=== PATIENT | male | born 1975 | race Caucasian/White ===

== ENCOUNTER 2018-08-21 11:09 | Inpatient (IN) | payer OTHER ==
[2018-08-21 11:21] VITALS: BMI 26.8
--- NOTE | 2018-08-21 16:45 | HP ---
COWS - Scale Resting Pulse: 1= [place] 81-100 Sweatin=Flushed/Facial Moisture Restless Observation: 1= Difficult to Sit Still Pupil Size: 0= Normal to Room Light Bone or Joint Aches: 1= Mild Discomfort Runny Nose/ Eye Tearin= Runny Nose/Eyes GI Upset > 30mins: 1= Stomach Cramp Tremor Observation: 1= Tremor [place], Not Seen Yawning Observation: 1= 1-2x During Session Anxiety or Irritability: 2=Irritable/Anxious Goose Flesh Skin: 0=Smooth Skin COWS Score: 12 CIWA Score Nausea/Vomitin-Mild Nausea/No Vomiting Muscle Tremors: 2 Anxiety: 2 Agitation: 4-Moderately Restless Paroxysmal Sweats: 2 Orientation: 1-Uncertain about Date (no distress) Tacttile Disturbances: 1-Very Mild Itch/Numbness Auditory Disturbances: 0-None Visual Disturbances: 0-None Headache: 0-None Present CIWA-Ar Total Score: 13 - Ad[place] Criteria [facility] [place] Admission for Medically Managed Detox: Requires at least one of the followin. CIWA greater than 12 2. Seizures within the past 24 hours 3. Delirium tremens within the past 24 hours 4. Hallucinations within the past 24 hours 5. Acute intervention needed for co occurring medical disorder 6. Acute intervention needed for co occurring psychiatric disorder 7. Severe withdrawal that cannot be handled at a lower level of care (continued vomiting, continued diarrhea, abnormal vital signs) requiring intravenous medication and/or fluids 8. Patient presents the following: CIWA greater than 12 Admission Criteria Met: Admission criteria met Admission ROS [facility] Chief Complaint: " I am tire, I need detox and rehab" Allergies/Adverse Reactions: Allergies Allergy/AdvReac Type Severity Reaction Status Date / Time No Known Allergies Allergy Verified 08/21/18 16:48 History of Present Illness: 42 yo male with hx of heroin (IV), alcohol and nicotine dependence is here seeking detox d/t withdrawal sx, self referred. PARTH = 0.086, utox positive for BNZO, BUP, FENT, Opi, patient denies recreational benzo, reports use of street BUP. Reports recent relapse two months ago. Reports hx of overdose in 2001. PMHX: OA, chronic back pain, Hep C., anxiety, bipolar and schizophrenia. Denies suicidal / homicidal ideation or hx of suicide attempt. Denies hx of seizures or blackouts. Longest period of sobriety three years 2012 - 2015. Exam Limitations: No Limitations - Ebola screening Have you traveled outside of the country in the last 21 days: No Have you had contact with anyone from an Ebola affected area: No Have you been sick,other than usual withdrawal symptoms: No Do you have a fever: No - Review of Systems Constitutional: Chills, Loss of Appetite, Changes in sleep, Unintentional Wgt. Loss (10 lbs in the pastr two months) EENT: reports: Nose Congestion Respiratory: reports: No Symptoms reported Cardiac: reports: No Symptoms Reported GI: reports: Nausea, Poor Appetite, Poor Fluid Intake, Abdominal cramping : reports: No Symptoms Reported Musculoskeletal: reports: Back Pain, Joint Pain (right knee r/t OA) Integumentary: reports: Dryness, Sweating Neuro: reports: Headache Endocrine: reports: See HPI, Excessive Sweating, Increased Thirst Hematology: reports: No Symptoms Reported Psychiatric: reports: Orientated x3, Anxious, Depressed Other Systems: Reviewed and Negative Patient History - Patient Medical History Hx Anemia: No Hx Asthma: No Hx Chronic Obstructive Pulmonary Disease (COPD): No Hx Cancer: No Hx Cardiac Disorders: No Hx Congestive Heart Failure: No Hx Hypertension: No Hx Hypercholesterolemia: No Hx Pacemaker: No HX Cerebrovascular Accident: No Hx Seizures: No Hx Dementia: No Hx Diabetes: No Hx Gastrointestinal Disorders: No Hx Liver Disease: Yes (Hep C ) Hx Genitourinary Disorders: No Hx Sexually Transmitted Disorders: No Hx Renal Disease (ESRD): No Hx Thyroid Disease: No Hx Human Immunodeficiency Virus (HIV): No Hx Hepatitis C: Yes (no treatment ) Hx Depression: Yes Hx Suicide Attempt: No Hx Bipolar Disorder: Yes Hx Schizophrenia: Yes - Patient Surgical History Past Surgical History: No - PPD History Previous Implant?: No Documented Results: Negative w/o proof PPD to be Administered?: Yes - Smoking Cessation Smoking history: Current every day smoker Have you smoked in the past 12 months: Yes Aproximately how many cigarettes per day: 20 Hx Chewing Tobacco Use: No Initiated information on smoking cessation: Yes 'Breaking Loose' booklet given: 08/21/18 - Substance & Tx. History Hx Alcohol Use: Yes Hx Substance Use: Yes Substance Use Type: Alcohol, Heroin Hx Substance Use Treatment: Yes (Last detox [facility] approx three weeks ago ) - Substances Abused Alcohol Route: Oral Frequency: 3-6 times per week Amount used: 6 x 24 oz beer Age of first use: 18 Date of Last Use: 08/21/18 Heroin Route: Injection Frequency: Daily Amount used: 3 bags Age of first use: 18 Date of Last Use: 08/21/18 Family Disease History - Family Disease History Family History: Denies Admission Physical Exam S - Vital Signs Vital Signs: Vital Signs - 24 hr 08/21/18 11:19 Temperature 98.6 F Pulse Rate 85 Respiratory 18 Rate Blood Pressure 117/66 - Physical General Appearance: Yes: Disheveled, Mild Distress, Alcohol on Breath, Sweating , Anxious HEENTM: Yes: EOMI, Hearing grossly Normal, Normal ENT Inspection, Normocephalic , Normal Voice, AJITH, Pharynx Normal, Tm's normal, Rhinorrhea, Other (dry mucous membranes) Respiratory: Yes: Chest Non-Tender, Lungs Clear, Normal Breath Sounds, No Respiratory Distress, No Accessory Muscle Use Neck: Yes: Within Normal Limits Breast: Yes: Breast Exam Deferred Cardiology: Yes: Regular Rhythm, Regular Rate Abdominal: Yes: Normal Bowel Sounds, Non Tender, Flat, Soft Genitourinary: Yes: Within Normal Limits Back: Yes: Normal Inspection Musculoskeletal: Yes: full range of Motion, Gait Steady, Pelvis Stable, Back pain, Other (+ right knee pain, no effusion present, full ROM) Extremities: Yes: Normal Capillary Refill, Normal Inspection, Normal Range of Motion, Non-Tender Neurological: Yes: diagnostic medical sonographer II-XII NML intact, Motor Strength 5/5, Depressed Affect Integumentary: Yes: Normal Color, Warm, Diaphoresis, Track Maloney (left forearm) Lymphatic: Yes: Within Normal Limits - Addiitonal Findings: Others' Prescriptions Patient Name: Néstor Hernandez Date: 1975 Address: [address] [place] [address] Sex: Male Rx Written Rx Dispensed Drug Quantity Days Supply Prescriber Name 07/03/2018 07/03/2018 zubsolv 5.7-1.4 mg tablet sl 15 15 Clark Moreno MD Patient Name: Néstor Del Cid Date: 1975 Address: [address] [place] [id number] Sex: Male Rx Written Rx Dispensed Drug Quantity Days Supply Prescriber Name 02/02/2018 02/02/2018 chlordiazepoxide 25 mg capsule 8 2 Peter Thacker 01/09/2018 01/10/2018 chlordiazepoxide 25 mg capsule 8 2 Gal [place] ( JONA) Patient Name: Néstor Hernandez Date: 1975 Address: [address] [place] [address] Sex: Male Rx Written Rx Dispensed Drug Quantity Days Supply Prescriber Name 10/14/2017 10/14/2017 chlordiazepoxide 25 mg capsule 10 3 Joann Bates MD - Diagnostic (1) Alcohol dependence with withdrawal Current Visit: Yes Status: Acute Qualifiers: Complication of substance-induced condition: uncomplicated Qualified Code(s ): F10.230 - Alcohol dependence with withdrawal, uncomplicated (2) Opioid dependence with withdrawal Current Visit: Yes Status: Acute (3) IVDU (intravenous drug user) Current Visit: Yes Status: Acute (4) Hep C w/o coma, chronic Current Visit: Yes Status: Chronic Comment: no tx [facility] Breath Alcohol Content Breath Alcohol Content: 0.086 Urine Drug Screen - Results Drug Screen Negative: No Urine Drug Screen Results: OPI-Opiates, BZO-Benzodiazepines, FEN-Fentanyl, BUP- Suboxone Inpatient Rehab Admission - Rehab Decision to Admit Inpatient rehab admission?: No
[2018-08-21] MEDS ORDERED: P-EPHED 60MG/TRIPROLIDI 2.5MG TABLET PO PRN (16:54)
[2018-08-21] MEDS ORDERED: IBUPROFEN 400 MG TABLET (FP) PO PRN (16:54)
[2018-08-21] MEDS ORDERED: guaiFENesin/D-METHORPHAN HB 10 ML UNIT-DOSE CUPS PO PRN (16:54)
[2018-08-21] MEDS ORDERED: MENTHOL/PHENOL 1 EACH UD MM PRN (16:54)
[2018-08-21] MEDS ORDERED: MAGNESIUM CITRATE 300 ML BOTTLE PO PRN (16:54)
[2018-08-21] MEDS ORDERED: MAGNESIUM HYDROX 2400MG/30ML ORAL SUSPENSION 30 ML CUP PO PRN (16:54)
[2018-08-21] MEDS ORDERED: ACETAMINOPHEN 325 MG TABLET (FP) PO PRN (16:54)
[2018-08-21] MEDS ORDERED: LOPERAMIDE HCL 2 MG CAPSULE PO PRN (16:54)
[2018-08-21] MEDS ORDERED: METHADONE HCL 10 MG TABLET (FOR DETOX USE ONLY) PO ONE ×2 (18:00→23:00)
[2018-08-21] MEDS ORDERED: diazePAM 5 MG TABLET PO ONE (18:00)
[2018-08-21] MEDS ORDERED: MELATONIN 5 MG TABLETS PO PRN (22:00)
[2018-08-21] MEDS: diazePAM 5 MG TABLET PO SCH (22:41)
[2018-08-21] MEDS: THIAMINE HCL 100 MG TABLET (FP) PO SCH (22:41)
[2018-08-22] MEDS: diazePAM 5 MG TABLET PO SCH ×3 (05:31→22:23)
[2018-08-22] MEDS ORDERED: METHADONE HCL 10 MG TABLET (FOR DETOX USE ONLY) PO SCH (10:00)
[2018-08-22] MEDS: diazePAM 5 MG TABLET PO PRN (10:47)
[2018-08-22] MEDS: PRENATAL VITAMINS W/ FOLIC ACID TABLET (FP) PO SCH (10:48)
[2018-08-22 10:53] LABS: HEMATOCRIT 44.2 % (35.4-49); HEMOGLOBIN 15.2 GM/dL (11.7-16.9); MCH 30.7 pg (25.7-33.7); MCHC 34.4 g/dl (32.0-35.9); MEAN CELL VOLUME 89.2 fl (80-96); MEAN PLT VOLUME 8.5 fl (7.5-11.1); PLATELET COUNT 278 K/MM3 (134-434); RBC 4.95 M/mm3 (4.00-5.60); RDW 13.2 % (11.9-15.9); WHITE BLOOD COUNT 6.1 K/mm3 (4.0-10.0)
--- NOTE | 2018-08-22 10:53 | PN ---
[facility] CIWA - CIWA Score Nausea/Vomitin-Mild Nausea/No Vomiting Muscle Tremors: 3 Anxiety: 2 Agitation: 3 Paroxysmal Sweats: 1-Minimal Palms Moist Orientation: 1-Uncertain about Date Tacttile Disturbances: 0-None Auditory Disturbances: 0-None Visual Disturbances: 0-None Headache: 1-Very Mild CIWA-Ar Total Score: 12 [facility] COWS - Scale Resting Pulse: 1= [place] 81-100 Sweatin= Chills/Flushing Restless Observation: 0= Sits Still Pupil Size: 0= Normal to Room Light Bone or Joint Aches: 1= Mild Discomfort Runny Nose/ Eye Tearin= Nasal Congestion GI Upset > 30mins: 2= Nausea/Diarrhea Tremor Observation of Outstretched Hands: 2= Slight Tremor Visible Yawning Observation: 1= 1-2x During Session Anxiety or Irritability: 1=Feels Anxious/Irritable Goose Flesh Skin: 0=Smooth Skin COWS Score: 10 [facility] Progress Note (SOAP) Subjective: joints pain body aches tremor sweating Objective: 08/22/18 10:55 Vital Signs Temperature 97.7 F 08/22/18 09:24 Pulse Rate 90 08/22/18 09:24 Respiratory Rate 18 08/22/18 09:24 Blood Pressure 139/62 08/22/18 09:24 O2 Sat by Pulse Oximetry (%) 08/22/18 10:55 lab pending Assessment: 08/22/18 10:56 withdrawal sx Plan: continue detox
[2018-08-22 11:04] LABS: ALK PHOS 74 U/L (45-117); ANION GAP 4 MMOL/L (8-16); BILIRUBIN,TOTAL 0.3 mg/dL (0.2-1); BLOOD UREA NITROGEN 14 mg/dL (7-18); CALCIUM 8.5 mg/dL (8.5-10.1); CHLORIDE 104 mmol/L (98-107); CO2 30 mmol/L (21-32); CREATININE 0.7 mg/dL (0.55-1.3); GLUCOSE,RANDOM 79 mg/dL (74-106); POTASSIUM 4.5 mmol/L (3.5-5.1); SGOT/AST 50 U/L (15-37); SGPT/ALT 70 U/L (13-61); SODIUM 138 mmol/L (136-145); TOT PROT 6.6 g/dl (6.4-8.2)
--- NOTE | 2018-08-22 11:13 | CONSULT ---
[facility] Psychiatric Consult - Data Date of interview: 08/22/18 Admission source: [facility] Identifying data: First admission to [facility] for this 42 y/o [place] male self-referred for detoxification (heroin + alcohol). Patient is single, a father of three, domiciled, unemployed and supported on odd jobs. Substance Abuse History: Confirmed by the patient in this interview. Details in current [facility] report as follows : Smoking history: Current every day smoker. Have you smoked in the past 12 months: Yes. Aproximately how many cigarettes per day: 20. Hx Chewing Tobacco Use: No. Initiated information on smoking cessation: Yes. 'Breaking Loose' booklet given: 08/21/18. - Substance & Tx. History. Hx Alcohol Use: Yes. Hx Substance Use: Yes. Substance Use Type: Alcohol, Heroin. Hx Substance Use Treatment: Yes (Last detox [facility] approx three weeks ago ). - Substances Abused. Alcohol. Route: Oral. Frequency: 3-6 times per week. Amount used: 6 x 24 oz beer. Age of first use: 18. Date of Last Use: 08/21/18. Heroin. Route: Injection. Frequency: Daily. Amount used: 3 bags. Age of first use: 18. Date of Last Use: 08/21/18 Medical History: Significant for hepatitis C, arthritis and self-reported allergic reaction to chlordiazepoxide (perioral rash). Psychiatric History: Patient endorses a history of [facility] Reportedly diagnosed with Schizophrenia. Mr Madison states that he is prescribed a monthly injection of aripriprazole (400 mg IM). Last received on 08/12/18 (confirmed by pharmacy claims of 08/12/18 at [facility]). Patient is followed by Dr Clark Moreno, psychiatrist at the [facility]. Noted script for suboxone (08/29) but the patient indicates that he has stopped taking that medication for past two weeks. Denies history of suicide attempts. Physical/Sexual Abuse/Trauma History: No reported history of abuse. Current stressors : unemployment, financial constraints, dispute with the mother of his children over child support and legal issues (arrests, court summons). Additional Comment: Urine Drug Screen Results: OPI-Opiates, BZO-Benzodiazepines , FEN-Fentanyl, BUP-Suboxone. Noted. Mental Status Exam - Mental Status Exam Alert and Oriented to: Time, Place, Person Cognitive Function: Good Patient Appearance: Unkempt (earrings in both ears), Disheveled Mood: Nervous, Withdrawn, Apprehensive Affect: Mood Congruent, Constricted Patient Behavior: Fatigued, Appropriate, Cooperative Speech Pattern: Clear (more comfortable in maori ; able to provide history in limited armenian), Appropriate Voice Loudness: Normal Thought Process: Goal Oriented Thought Disorder: Not Present Hallucinations: Denies Suicidal Ideation: Denies Homicidal Ideation: Denies Insight/Judgement: Poor Sleep: Well Appetite: Good Muscle strength/Tone: Normal Gait/Station: Normal Psychiatric Findings - Problem List ([place] 1, 2,3) (1) Alcohol dependence with withdrawal Current Visit: Yes Status: Acute Qualifiers: Complication of substance-induced condition: uncomplicated Qualified Code(s ): F10.230 - Alcohol dependence with withdrawal, uncomplicated (2) Opioid dependence with withdrawal Current Visit: Yes Status: Acute (3) Nicotine dependence Current Visit: Yes Status: Chronic (4) Substance induced mood disorder Current Visit: Yes Status: Chronic (5) Schizophrenia Current Visit: Yes Status: Chronic - Initial Treatment Plan Initial Treatment Plan: Psychoeducation. Sleep hygiene. Detoxification in progress. Support. AA/NA meetings. Patient has expressed the wish to enlist in rehabilitation after completion of his detoxification protocol. Social work team will facilitate this plan. Motivational encouragement for sobriety. Abilify 400 mg IM every month (already dispensed at [facility] on 08/12/18). Patient denies experiencing side effects. Observation.
[2018-08-22] MEDS ORDERED: FLU VACCINE QUAD 60 MCG/0.5 ML (MDV 18-19) IM ONE (12:00)
--- NOTE | 2018-08-22 16:33 | EKG ---
Test Reason : Blood Pressure : / mmHG Vent. Rate : 058 BPM Atrial Rate : 058 BPM P-R Int : 190 ms QRS Dur : 088 ms QT Int : 424 ms P-R-T Axes : 057 070 059 degrees QTc Int : 416 ms SINUS BRADYCARDIA OTHERWISE NORMAL ECG NO PREVIOUS ECGS AVAILABLE Confirmed by Madhav Becker ([id number]) on 08/22/2018 4:32:52 PM Referred By: Confirmed By:Madhav Becker
[2018-08-22] MEDS: THIAMINE HCL 100 MG TABLET (FP) PO SCH (22:23)
[2018-08-23] MEDS: diazePAM 5 MG TABLET PO PRN ×2 (07:28→13:27)
[2018-08-23] MEDS ORDERED: METHADONE HCL 5 MG TABLET (FOR DETOX USE ONLY) PO SCH (10:00)
[2018-08-23] MEDS: PRENATAL VITAMINS W/ FOLIC ACID TABLET (FP) PO SCH (10:02)
[2018-08-23] MEDS: diazePAM 5 MG TABLET PO SCH ×2 (10:02→22:25)
--- NOTE | 2018-08-23 10:14 | PN ---
S CIWA - CIWA Score Nausea/Vomitin-No Nausea/No Vomiting Muscle Tremors: 3 Anxiety: 1-Mildly Anxious Agitation: 2 Paroxysmal Sweats: 1-Minimal Palms Moist Orientation: 1-Uncertain about Date Tacttile Disturbances: 0-None Auditory Disturbances: 0-None Visual Disturbances: 0-None Headache: 2-Mild CIWA-Ar Total Score: 10 [facility] COWS - Scale Resting Pulse: 0= [place] 80 or Below Sweatin= Chills/Flushing Restless Observation: 0= Sits Still Pupil Size: 0= Normal to Room Light Bone or Joint Aches: 1= Mild Discomfort Runny Nose/ Eye Tearin= Nasal Congestion GI Upset > 30mins: 1= Stomach Cramp Tremor Observation of Outstretched Hands: 1= Tremor [place], Not Seen Yawning Observation: 0= None Anxiety or Irritability: 1=Feels Anxious/Irritable Goose Flesh Skin: 0=Smooth Skin COWS Score: 6 S Progress Note (SOAP) Subjective: body aches tremor sweating trouble sleep at night smoke a pack of cigarette daily nicotine patch and gum ordered Objective: 08/23/18 10:17 Vital Signs Temperature 98.6 F 08/23/18 09:54 Pulse Rate 90 08/23/18 09:54 Respiratory Rate 20 08/23/18 09:54 Blood Pressure 138/84 08/23/18 09:54 O2 Sat by Pulse Oximetry (%) Laboratory Last Values WBC 6.1 K/mm3 (4.0-10.0) 08/22/18 08:10 RBC 4.95 M/mm3 (4.00-5.60) 08/22/18 08:10 Hgb 15.2 GM/dL (11.7-16.9) 08/22/18 08:10 Hct 44.2 % (35.4-49) 08/22/18 08:10 MCV 89.2 fl (80-96) 08/22/18 08:10 MCH 30.7 pg (25.7-33.7) 08/22/18 08:10 MCHC 34.4 g/dl (32.0-35.9) 08/22/18 08:10 RDW 13.2 % (11.9-15.9) 08/22/18 08:10 Plt Count 278 K/MM3 (134-434) 08/22/18 08:10 MPV 8.5 fl (7.5-11.1) 08/22/18 08:10 Sodium 138 mmol/L (136-145) 08/22/18 08:10 Potassium 4.5 mmol/L (3.5-5.1) 08/22/18 08:10 Chloride 104 mmol/L (98-107) 08/22/18 08:10 Carbon Dioxide 30 mmol/L (21-32) 08/22/18 08:10 Anion Gap 4 MMOL/L (8-16) L 08/22/18 08:10 BUN 14 mg/dL (7-18) 08/22/18 08:10 Creatinine 0.7 mg/dL (0.55-1.3) 08/22/18 08:10 Creat Clearance w eGFR > 60 (>60) 08/22/18 08:10 Random Glucose 79 mg/dL (74-106) 08/22/18 08:10 Calcium 8.5 mg/dL (8.5-10.1) 08/22/18 08:10 Total Bilirubin 0.3 mg/dL (0.2-1) 08/22/18 08:10 AST 50 U/L (15-37) H 08/22/18 08:10 ALT 70 U/L (13-61) H 08/22/18 08:10 Alkaline Phosphatase 74 U/L (45-117) 08/22/18 08:10 Total Protein 6.6 g/dl (6.4-8.2) 08/22/18 08:10 Albumin 3.0 g/dl (3.4-5.0) L 08/22/18 08:10 RPR Titer Nonreactive (NONREACTIVE) 08/22/18 08:10 lab noted Assessment: 08/23/18 10:17 withdrawal sx Plan: continue detox
[2018-08-23] MEDS: NICOTINE 21 MG/24 HOURS TOPICAL PATCH TD SCH (12:13)
[2018-08-23] MEDS: NICOTINE POLACRILEX 4 MG GUM BUC PRN (12:14)
--- NOTE | 2018-08-23 14:42 | PN ---
[facility] Progress Note Note: patient preferred begin chemical rehab on 08/25/18 opiate detox regimen adjustment
[2018-08-23] MEDS: GABAPENTIN 300 MG CAPSULE (FP) PO SCH ×2 (15:55→22:25)
[2018-08-23] MEDS: MAG HYDROX/AL HYDROX/SIMETH 30 ML UNIT-DOSE CUP PO PRN (15:55)
[2018-08-23] MEDS: THIAMINE HCL 100 MG TABLET (FP) PO SCH (22:25)
[2018-08-24] MEDS: diazePAM 5 MG TABLET PO PRN ×3 (03:10→13:26)
[2018-08-24] MEDS: GABAPENTIN 300 MG CAPSULE (FP) PO SCH ×3 (05:14→22:09)
[2018-08-24] MEDS: NICOTINE 21 MG/24 HOURS TOPICAL PATCH TD SCH (09:36)
[2018-08-24] MEDS ORDERED: METHADONE HCL 10 MG TABLET (FOR DETOX USE ONLY) PO ONE (10:00)
--- NOTE | 2018-08-24 10:27 | PN ---
S CIWA - CIWA Score Nausea/Vomitin-Mild Nausea/No Vomiting Muscle Tremors: 2 Anxiety: 1-Mildly Anxious Agitation: 2 Paroxysmal Sweats: 1-Minimal Palms Moist Orientation: 0-Oriented Tacttile Disturbances: 0-None Auditory Disturbances: 0-None Visual Disturbances: 0-None Headache: 2-Mild CIWA-Ar Total Score: 9 [facility] COWS - Scale Resting Pulse: 0= [place] 80 or Below Sweatin= Chills/Flushing Restless Observation: 0= Sits Still Pupil Size: 0= Normal to Room Light Bone or Joint Aches: 1= Mild Discomfort Runny Nose/ Eye Tearin= Nasal Congestion GI Upset > 30mins: 1= Stomach Cramp Tremor Observation of Outstretched Hands: 1= Tremor [place], Not Seen Yawning Observation: 0= None Anxiety or Irritability: 1=Feels Anxious/Irritable Goose Flesh Skin: 0=Smooth Skin COWS Score: 6 [facility] Progress Note (SOAP) Subjective: feeling better mild tremor less sweating social with peers in day room Objective: 08/24/18 10:28 Vital Signs Temperature 98.1 F 08/24/18 09:44 Pulse Rate 74 08/24/18 09:44 Respiratory Rate 20 08/24/18 09:44 Blood Pressure 136/77 08/24/18 09:44 O2 Sat by Pulse Oximetry (%) Laboratory Last Values WBC 6.1 K/mm3 (4.0-10.0) 08/22/18 08:10 RBC 4.95 M/mm3 (4.00-5.60) 08/22/18 08:10 Hgb 15.2 GM/dL (11.7-16.9) 08/22/18 08:10 Hct 44.2 % (35.4-49) 08/22/18 08:10 MCV 89.2 fl (80-96) 08/22/18 08:10 MCH 30.7 pg (25.7-33.7) 08/22/18 08:10 MCHC 34.4 g/dl (32.0-35.9) 08/22/18 08:10 RDW 13.2 % (11.9-15.9) 08/22/18 08:10 Plt Count 278 K/MM3 (134-434) 08/22/18 08:10 MPV 8.5 fl (7.5-11.1) 08/22/18 08:10 Sodium 138 mmol/L (136-145) 08/22/18 08:10 Potassium 4.5 mmol/L (3.5-5.1) 08/22/18 08:10 Chloride 104 mmol/L (98-107) 08/22/18 08:10 Carbon Dioxide 30 mmol/L (21-32) 08/22/18 08:10 Anion Gap 4 MMOL/L (8-16) L 08/22/18 08:10 BUN 14 mg/dL (7-18) 08/22/18 08:10 Creatinine 0.7 mg/dL (0.55-1.3) 08/22/18 08:10 Creat Clearance w eGFR > 60 (>60) 08/22/18 08:10 Random Glucose 79 mg/dL (74-106) 08/22/18 08:10 Calcium 8.5 mg/dL (8.5-10.1) 08/22/18 08:10 Total Bilirubin 0.3 mg/dL (0.2-1) 08/22/18 08:10 AST 50 U/L (15-37) H 08/22/18 08:10 ALT 70 U/L (13-61) H 08/22/18 08:10 Alkaline Phosphatase 74 U/L (45-117) 08/22/18 08:10 Total Protein 6.6 g/dl (6.4-8.2) 08/22/18 08:10 Albumin 3.0 g/dl (3.4-5.0) L 08/22/18 08:10 RPR Titer Nonreactive (NONREACTIVE) 08/22/18 08:10 lab noted Assessment: 08/24/18 10:29 withdrawal sx Plan: continue detox
[2018-08-24] MEDS: PRENATAL VITAMINS W/ FOLIC ACID TABLET (FP) PO SCH (10:30)
[2018-08-24] MEDS: diazePAM 5 MG TABLET PO SCH ×2 (10:30→22:09)
[2018-08-24] MEDS: MAG HYDROX/AL HYDROX/SIMETH 30 ML UNIT-DOSE CUP PO PRN (14:09)
[2018-08-24] MEDS: THIAMINE HCL 100 MG TABLET (FP) PO SCH (22:09)
[2018-08-25] MEDS: GABAPENTIN 300 MG CAPSULE (FP) PO SCH (05:30)
[2018-08-25] MEDS: NICOTINE POLACRILEX 4 MG GUM BUC PRN (05:31)
[2018-08-25] MEDS ORDERED: METHADONE HCL 5 MG TABLET (FOR DETOX USE ONLY) PO SCH (06:00)
[2018-08-25 09:18] VITALS: BP 155/95; PULSE 84; TEMP 98.1
[2018-08-25] MEDS ORDERED: METHADONE HCL 10 MG TABLET (FOR DETOX USE ONLY) PO SCH (10:00)
[2018-08-25] MEDS ORDERED: diazePAM 5 MG TABLET PO SCH (10:00)
[2018-08-25] MEDS: PRENATAL VITAMINS W/ FOLIC ACID TABLET (FP) PO SCH (10:06)
[2018-08-25] MEDS: NICOTINE 21 MG/24 HOURS TOPICAL PATCH TD SCH (10:06)
--- NOTE | 2018-08-25 18:58 | DS ---
[facility] Detox Discharge Summary Admission Date: 08/21/18 Discharge Date: 08/25/18 - History Present History: Alcohol Dependence, Opioid Dependence Additional Comments: PATIENT RETURNING HOME AND TO WORK. PATIENT WILL ATTEND [facility] ([place], [place]) FOR AFTERCARE. PATIENT WAS DISCHARGED FROM DETOX UNIT IN STABLE MEDICAL CONDITION. Pertinent Past History: Hep C, Intravenous Drug User, History of Depression, History of Bipolar Disorder , History of Schizophrenia, Nicotine Dependence. - Physical Exam Results Vital Signs: Vital Signs Temperature 98.1 F 08/25/18 09:18 Pulse Rate 84 08/25/18 09:18 Respiratory Rate 20 08/25/18 09:18 Blood Pressure 155/95 08/25/18 09:18 O2 Sat by Pulse Oximetry (%) Pertinent Admission Physical Exam Findings: WITHDRAWAL SYMPTOMS. Laboratory Tests 08/22/18 08/22/18 08/22/18 08:10 08:10 08:10 WBC 6.1 RBC 4.95 Hgb 15.2 Hct 44.2 MCV 89.2 MCH 30.7 MCHC 34.4 RDW 13.2 Plt Count 278 MPV 8.5 Sodium 138 Potassium 4.5 Chloride 104 Carbon Dioxide 30 Anion Gap 4 L BUN 14 Creatinine 0.7 Creat Clearance w eGFR > 60 Random Glucose 79 Calcium 8.5 Total Bilirubin 0.3 AST 50 H ALT 70 H Alkaline Phosphatase 74 Total Protein 6.6 Albumin 3.0 L RPR Titer Nonreactive LABS NOTED. - Treatment Hospital Course: Detox Protocol Followed, Detoxed Safely, Responded well, Discharged Condition Good Patient has Accepted a Rehab Referral to: [facility] DECLINES, RETURNING TO HOME, WORK , AND [facility] ([place] - Medication Discharge Medications: Ambulatory Orders Gabapentin 800 mg PO BID 08/21/18 Gabapentin [Neurontin -] 300 mg PO Q8H 08/23/18 - Diagnosis (1) Alcohol dependence with withdrawal Status: Acute Qualifiers: Complication of substance-induced condition: uncomplicated Qualified Code(s ): F10.230 - Alcohol dependence with withdrawal, uncomplicated (2) IVDU (intravenous drug user) Status: Acute (3) Opioid dependence with withdrawal Status: Acute (4) Hep C w/o coma, chronic Status: Chronic (5) Nicotine dependence Status: Chronic Qualifiers: Nicotine product type: cigarettes Substance use status: uncomplicated Qualified Code(s): F17.210 - Nicotine dependence, cigarettes, uncomplicated (6) Substance induced mood disorder Status: Chronic (7) Schizophrenia Status: Chronic Qualifiers: Schizophrenia type: unspecified Qualified Code(s): F20.9 - Schizophrenia, unspecified - AMA Did Patient Leave Against Medical Advice: No
[2018-08-26] MEDS ORDERED: METHADONE HCL 5 MG TABLET (FOR DETOX USE ONLY) PO SCH (06:00)
== END 2018-08-25 12:54 | disposition home or self-care (01) | DRG 773 ==
LOC: YASAS 11:09 → Y3N 17:35
PROVIDERS: ADMIT Surgery; ATTEND Surgery
PROC: HZ2ZZZZ Detoxification Services for Substance Abuse Treatment (ICD-10-PCS; principal; 2018-08-21)
DX: F11.23 Opioid dependence with withdrawal (principal); F10.230 Alcohol dependence with withdrawal, uncomplicated; F17.210 Nicotine dependence, cigarettes, uncomplicated; F19.24 Other psychoactive substance dependence with psychoactive substance-induced mood disorder; F31.9 Bipolar disorder, unspecified; B18.2 Chronic viral hepatitis C; M12.9 Arthropathy, unspecified; Z88.8 Allergy status to other drugs, medicaments and biological substances
CPT/HCPCS: 36415; 80053; 85027; 86593; 93005; 93010

== ENCOUNTER 2021-01-16 15:53 | Inpatient (IN) | payer OTHER ==
[2021-01-16 18:10] VITALS: BMI 35.9
[2021-01-16] MEDS ORDERED: ACETAMINOPHEN 325 MG TABLET (FP) PO PRN ×2 (21:13)
[2021-01-16] MEDS ORDERED: IBUPROFEN 400 MG TABLET (FP) PO PRN (21:13)
[2021-01-16] MEDS ORDERED: NICOTINE POLACRILEX 2 MG GUM BUC PRN (21:13)
[2021-01-16] MEDS ORDERED: MAG HYDROX/AL HYDROX/SIMETH 30 ML UNIT-DOSE CUP PO PRN (21:13)
[2021-01-16] MEDS ORDERED: MAGNESIUM CITRATE 300 ML BOTTLE PO PRN (21:13)
[2021-01-16] MEDS ORDERED: MAGNESIUM HYDROX 2400MG/30ML ORAL SUSPENSION 30 ML CUP PO PRN (21:13)
[2021-01-16] MEDS ORDERED: methaDONE HCL 10 MG TABLET (FOR DETOX USE ONLY) PO ONE (21:13)
[2021-01-16] MEDS ORDERED: ONDANSETRON *ODT* 4 MG TABLET SL PRN (21:13)
[2021-01-16] MEDS ORDERED: BISMUTH SUBSALICYLATE 524 MG/30 ML PO PRN (21:13)
[2021-01-16] MEDS ORDERED: cloNIDine HCL 0.1 MG TABLET PO PRN (21:13)
[2021-01-16] MEDS ORDERED: MENTHOL/PHENOL 1 EACH UD MM PRN (21:13)
[2021-01-16] MEDS ORDERED: METHOCARBAMOL 500 MG TABLET PO PRN (21:13)
[2021-01-16] MEDS ORDERED: diazePAM 5 MG TABLET PO PRN (21:13)
[2021-01-16] MEDS ORDERED: diazePAM 5 MG TABLET ONE (22:37)
[2021-01-16] MEDS ORDERED: methaDONE HCL 10 MG TABLET (FOR DETOX USE ONLY) ONE (22:38)
[2021-01-16] MEDS ORDERED: hydrOXYzine PAMOATE 25 MG CAPSULE (FP) PO ONE (22:38)
[2021-01-16] MEDS: diazePAM 5 MG TABLET PO SCH (22:40)
[2021-01-16] MEDS: hydrOXYzine PAMOATE 25 MG CAPSULE (FP) PO SCH (22:49)
[2021-01-16] MEDS: MELATONIN 5 MG TABLETS PO SCH (23:23)
[2021-01-16] MEDS: THIAMINE HCL 100 MG TABLET (FP) PO SCH (23:23)
[2021-01-17] MEDS ORDERED: diazePAM 5 MG TABLET ONE ×2 (04:16→09:57)
[2021-01-17] MEDS ORDERED: hydrOXYzine PAMOATE 25 MG CAPSULE (FP) PO ONE (04:16)
[2021-01-17] MEDS: hydrOXYzine PAMOATE 25 MG CAPSULE (FP) PO SCH ×8 (05:36→22:40)
[2021-01-17] MEDS: diazePAM 5 MG TABLET PO SCH ×4 (05:36→22:14)
[2021-01-17] MEDS ORDERED: methaDONE HCL 10 MG TABLET (FOR DETOX USE ONLY) ONE (09:57)
[2021-01-17] MEDS ORDERED: METHOCARBAMOL 500 MG TABLET ONE (09:57)
[2021-01-17] MEDS: PRENATAL VITAMINS W/ FOLIC ACID TABLET (FP) PO SCH (10:01)
[2021-01-17] MEDS: MELATONIN 5 MG TABLETS PO SCH (22:14)
[2021-01-17] MEDS: THIAMINE HCL 100 MG TABLET (FP) PO SCH (22:14)
[2021-01-18] MEDS: hydrOXYzine PAMOATE 25 MG CAPSULE (FP) PO SCH ×5 (05:45→22:36)
[2021-01-18] MEDS: diazePAM 5 MG TABLET PO SCH ×3 (05:46→22:36)
[2021-01-18] MEDS ORDERED: methaDONE HCL 10 MG TABLET (FOR DETOX USE ONLY) PO ONE (10:00)
[2021-01-18] MEDS: PRENATAL VITAMINS W/ FOLIC ACID TABLET (FP) PO SCH (10:31)
[2021-01-18] MEDS: CLINDAMYCIN HCL 150 MG CAPSULE (FP) PO SCH ×2 (11:02→17:50)
[2021-01-18 11:12] LABS: HEMATOCRIT 43.9 % (35.4-49); HEMOGLOBIN 14.7 GM/dL (11.7-16.9); MCH 30.8 pg (25.7-33.7); MCHC 33.6 g/dl (32.0-35.9); MEAN CELL VOLUME 91.6 fl (80-96); MEAN PLT VOLUME 9.5 fl (7.5-11.1); PLATELET COUNT 218 10^3/uL (134-434); RBC 4.79 M/mm3 (4.00-5.60); RDW 13.4 % (11.9-15.9); WHITE BLOOD COUNT 12.1 K/mm3 (4.0-10.0)
[2021-01-18 11:17] LABS: CALCIUM 8.7 mg/dL (8.5-10.1)
[2021-01-18 11:18] LABS: ALBUMIN 3.2 g/dl (3.4-5.0); BLOOD UREA NITROGEN 27.9 mg/dL (7-18)
[2021-01-18 11:20] LABS: CREATININE 1.6 mg/dL (0.55-1.3)
[2021-01-18 11:22] LABS: BILIRUBIN,TOTAL 1.7 mg/dL (0.2-1); TOT PROT 7.9 g/dl (6.4-8.2)
[2021-01-18] MEDS ORDERED: ALBUTEROL SO4 0.083% IH SOL 2.5 MG/3 ML VIAL.NEB. NEB ONE (13:15)
[2021-01-18] MEDS ORDERED: ALBUTEROL SO4 0.083% IH SOL 2.5 MG/3 ML VIAL.NEB. NEB PRN (13:47)
[2021-01-18 17:07] VITALS: BP 124/72; PULSE 124; TEMP 99.8
[2021-01-18] MEDS: MELATONIN 5 MG TABLETS PO SCH (22:36)
[2021-01-18] MEDS: THIAMINE HCL 100 MG TABLET (FP) PO SCH (22:37)
[2021-01-19] MEDS ORDERED: diazePAM 5 MG TABLET PO SCH (06:00)
[2021-01-20] MEDS ORDERED: diazePAM 5 MG TABLET PO ONE (06:00)
[2021-01-20] MEDS ORDERED: methaDONE HCL 10 MG TABLET (FOR DETOX USE ONLY) PO ONE (10:00)
== END 2021-01-18 11:30 | disposition short-term general hospital (02) | DRG 773 ==
LOC: YASAS 15:53 → Y6N 01-17 10:46
PROVIDERS: ADMIT Allergy & Immunology; ATTEND Allergy & Immunology
PROC: HZ2ZZZZ Detoxification Services for Substance Abuse Treatment (ICD-10-PCS; principal; 2021-01-17)
DX: F11.23 Opioid dependence with withdrawal (principal); F10.230 Alcohol dependence with withdrawal, uncomplicated; F17.210 Nicotine dependence, cigarettes, uncomplicated; F31.9 Bipolar disorder, unspecified; F20.9 Schizophrenia, unspecified; I10 Essential (primary) hypertension; R50.9 Fever, unspecified; R05 Cough; R00.0 Tachycardia, unspecified; R09.02 Hypoxemia
CPT/HCPCS: 36415; 80053; 85027; 86780; 93005; 93010; 94640; C9803; U0003; U0005

== ENCOUNTER 2021-01-18 17:47 | Inpatient (IN) | payer OTHER ==
[2021-01-18] MEDS ORDERED: ACETAMINOPHEN 1000 MG/100 ML VIAL (NON FORMULARY) IVPB ONE (18:13)
[2021-01-18] MEDS ORDERED: PIPERACILLIN/TAZOB 3.375 GM 3.375 GM in DEXTROSE 5%-WATER - 50 ML IVPB ONE (18:14)
[2021-01-18] MEDS ORDERED: LACTATED RINGERS SOLUTION 1000 ML INFUS.BAG IV ONE ×2 (18:14→20:23)
[2021-01-18] MEDS ORDERED: VANCOMYCIN 1 GM in D5W (PRE-DOCKED) 1,000 MG/250 ML IVPB ONE (18:14)
[2021-01-18] MEDS ORDERED: ACETAMINOPHEN INJECTION 100 ML IVPB ONE (18:31)
[2021-01-18] MEDS ORDERED: PIPERACILLIN/TAZOB 3.375 GM 3.375 GM/50 ML BAG IVPB ONE (18:36)
[2021-01-18] MEDS ORDERED: VANCOMYCIN 1 GRAM (PRE-DOCKED) 1,000 MG/250 ML BAG IVPB ONE (18:36)
[2021-01-18 18:57] LABS: BASO % 0.7 % (0-2.0); EOS % 4.1 % (0-4.5); HEMATOCRIT 41.3 % (35.4-49); HEMOGLOBIN 14.2 GM/dL (11.7-16.9); LYMPH % 5.5 % (8-40); MCH 30.9 pg (25.7-33.7); MCHC 34.5 g/dl (32.0-35.9); MEAN CELL VOLUME 89.5 fl (80-96); MEAN PLT VOLUME 8.9 fl (7.5-11.1); MONO % 4.9 % (3.8-10.2); NEUT % 84.8 % (42.8-82.8); PLATELET COUNT 211 10^3/uL (134-434); RBC 4.62 M/mm3 (4.00-5.60); RDW 13.5 % (11.9-15.9); WHITE BLOOD COUNT 11.2 K/mm3 (4.0-10.0)
[2021-01-18 19:08] LABS: INR 1.31 (0.83-1.09)
[2021-01-18 19:11] LABS: ACTIVATED PTT 32.6 SECONDS (25.2-36.5)
[2021-01-18 19:22] LABS: CHLORIDE 104 mmol/L (98-107); SODIUM 135 mmol/L (136-145)
[2021-01-18 19:24] LABS: CALCIUM 8.3 mg/dL (8.5-10.1)
[2021-01-18 19:25] LABS: ALBUMIN 3.1 g/dl (3.4-5.0); ANION GAP 7 MMOL/L (8-16); BLOOD UREA NITROGEN 29.9 mg/dL (7-18); CO2 23 mmol/L (21-32); GLUCOSE,RANDOM 108 mg/dL (74-106)
[2021-01-18 19:28] LABS: CREATININE 1.7 mg/dL (0.55-1.3); SGOT/AST 160 U/L (15-37); SGPT/ALT 99 U/L (13-61)
[2021-01-18 19:30] LABS: TOT PROT 7.7 g/dl (6.4-8.2)
[2021-01-18 19:31] LABS: ALK PHOS 53 U/L (45-117)
[2021-01-18 19:33] LABS: N-TERMINAL BNP 11.2 pg/ml (5-125)
[2021-01-18 20:26] LABS: MAGNESIUM 2.8 mg/dL (1.8-2.4)
[2021-01-18 20:30] LABS: PHOSPHOROUS 1.9 mg/dL (2.5-4.9)
[2021-01-18 20:31] LABS: LDH 822 U/L (87-246)
[2021-01-18 22:09] LABS: EPI CELLS 6 /uL (0-25.1); HYALINE CASTS 4 /uL (0-3.1); PH,URINE 5.5 (5.0-8.0); URINE APPEARANCE CLOUDY; URINE BACTERIA 17 /uL (0-1359); URINE BILIRUBIN NEGATIVE (NEGATIVE); URINE COLOR DK YELLOW; URINE GLUCOSE (UA) NEGATIVE (NEGATIVE); URINE KETONE NEGATIVE (NEGATIVE); URINE LEUK ESTERASE NEGATIVE (NEGATIVE); URINE NITRITE NEGATIVE (NEGATIVE); URINE PROTEIN 2+ (NEGATIVE); URINE RBC 13 /uL (0-23.9); URINE WBC 10 /uL (0-25.8)
[2021-01-19] MEDS ORDERED: SODIUM CHLORIDE 1,000 ML IV SCH (01:00)
[2021-01-19] MEDS ORDERED: LORazepam 1 MG TABLET PO PRN (01:11)
[2021-01-19] MEDS ORDERED: ALBUTEROL SO4 2.5/IPRATROPIUM 0.5 INH SOL 3 ML VIAL.NEB. NEB ONE (01:20)
[2021-01-19] MEDS: FAMOTIDINE 20 MG/50 ML IVPB 20 MG/50 ML MG IVPB SCH ×3 (02:07→21:45)
[2021-01-19] MEDS ORDERED: SODIUM PHOSPHATE - 30 MM in SODIUM CHLORIDE 250 ML IVPB ONE (02:16)
[2021-01-19 02:31] LABS: BASO % 0.5 % (0-2.0); EOS % 5.3 % (0-4.5); HEMOGLOBIN 9.4 GM/dL (11.7-16.9); LYMPH % 9.9 % (8-40); MCH 31.1 pg (25.7-33.7); MCHC 33.5 g/dl (32.0-35.9); MEAN CELL VOLUME 92.9 fl (80-96); MEAN PLT VOLUME 9.1 fl (7.5-11.1); MONO % 3.7 % (3.8-10.2); NEUT % 80.6 % (42.8-82.8); PLATELET COUNT 138 10^3/uL (134-434); RBC 3.02 M/mm3 (4.00-5.60); RDW 13.4 % (11.9-15.9); WHITE BLOOD COUNT 7.8 K/mm3 (4.0-10.0)
[2021-01-19 02:37] VITALS: BMI 33.5
[2021-01-19 02:52] LABS: ALBUMIN 2.6 g/dl (3.4-5.0); CALCIUM 7.4 mg/dL (8.5-10.1)
[2021-01-19 02:53] LABS: BLOOD UREA NITROGEN 23.2 mg/dL (7-18); MAGNESIUM 2.7 mg/dL (1.8-2.4)
[2021-01-19 02:55] LABS: CREATININE 1.2 mg/dL (0.55-1.3)
[2021-01-19 02:56] LABS: PHOSPHOROUS 3.4 mg/dL (2.5-4.9)
[2021-01-19 02:57] LABS: BILIRUBIN,TOTAL 1.2 mg/dL (0.2-1); TOT PROT 6.4 g/dl (6.4-8.2)
[2021-01-19] MEDS ORDERED: SODIUM PHOSPHATE - 30 MM in SODIUM CHLORIDE 500 ML IVPB ONE (03:15)
[2021-01-19] MEDS ORDERED: ALBUTEROL SO4 2.5/IPRATROPIUM 0.5 INH SOL 3 ML VIAL.NEB. NEB PRN (05:00)
[2021-01-19] MEDS: HEPARIN NA (PORCINE) 5,000 UNITS/ML 1ML VIAL SQ SCH ×3 (06:11→21:45)
[2021-01-19 08:02] LABS: LDH 557 U/L (87-246)
[2021-01-19 08:05] LABS: COCAINE, UR NEGATIVE (NEGATIVE); OPIATES, URI NEGATIVE (NEGATIVE); URINE BARBITURATES NEGATIVE (NEGATIVE)
[2021-01-19 08:06] LABS: PHENCYCLIDINE,URINE NEGATIVE (NEGATIVE)
[2021-01-19 08:10] LABS: URINE AMPHETAMINES NEGATIVE (NEGATIVE)
[2021-01-19 08:14] LABS: METHADONE, UR POSITIVE (NEGATIVE); URINE BENZODIAZEPINES POSITIVE (NEGATIVE)
[2021-01-19] MEDS ORDERED: ACETAMINOPHEN 1000 MG/100 ML VIAL (NON FORMULARY) IVPB ONE (08:14)
[2021-01-19] MEDS ORDERED: methaDONE HCL 10 MG TABLET ONE (08:54)
[2021-01-19] MEDS ORDERED: cefTRIAXone SODIUM 1 GM VIAL ONE (08:55)
[2021-01-19] MEDS ORDERED: DEXTROSE 5%-WATER - 50 ML IVPB ONE (08:55)
[2021-01-19] MEDS ORDERED: PT OWN MED DRAWER 7, Y5N ONE ×2 (09:17→20:09)
[2021-01-19] MEDS ORDERED: DEXAMETHASONE SOD PHOSPHATE 4 MG/1 ML VIAL IVPUSH SCH (10:00)
[2021-01-19] MEDS ORDERED: CEFTRIAXONE 1 GM in DEXTROSE 5%-WATER - 50 ML IVPB ONE (10:00)
[2021-01-19] MEDS ORDERED: AZITHROMYCIN 500 MG TABLET PO ONE (10:00)
[2021-01-19] MEDS: LORazepam 1 MG TABLET PO SCH ×3 (11:12→22:10)
[2021-01-19] MEDS: VANCOMYCIN 1 GRAM (PRE-DOCKED) 1,000 MG/250 ML BAG IVPB SCH (12:46)
[2021-01-19] MEDS: BUDESONIDE/FORMETEROL FUMARATE 160/4.5 mcg INHALER IH SCH ×2 (13:35→21:46)
[2021-01-19 19:34] LABS: TOTAL IRON BINDING CAPACITY 267 ug/dL (250-450)
[2021-01-20] MEDS: VANCOMYCIN 1 GRAM (PRE-DOCKED) 1,000 MG/250 ML BAG IVPB SCH (00:12)
[2021-01-20 02:22] VITALS: BP 186/87; PULSE 65; TEMP 97.5
[2021-01-20] MEDS ORDERED: AZITHROMYCIN 250 MG TABLET PO SCH (10:00)
[2021-01-20] MEDS ORDERED: methaDONE HCL 10 MG TABLET PO ONE (10:00)
[2021-01-20] MEDS ORDERED: CEFTRIAXONE 2 GM in DEXTROSE 5%-WATER 2 GM/100 ML BAG IVPB SCH (10:00)
[2021-01-20] MEDS ORDERED: AZITHROMYCIN IVPB 500 MG/250 ML BAG IVPB SCH (10:00)
[2021-01-21 04:13] LABS: SARS-CoV-2 NAA Not Detected (Not Detected)
[2021-01-21] MEDS ORDERED: LORazepam 1 MG TABLET PO SCH (05:00)
[2021-01-22] MEDS ORDERED: LORazepam 0.5 MG TABLET PO PRN
[2021-01-22] MEDS ORDERED: LORazepam 0.5 MG TABLET PO SCH (05:00)
[2021-01-23] MEDS ORDERED: LORazepam 0.5 MG TABLET PO ONE (05:00)
== END 2021-01-20 06:50 | disposition left against medical advice (07) | DRG 720 ==
LOC: JER 17:47 → JERBED 22:15 → J4S 01-19 00:52
PROVIDERS: ADMIT Hospitalist; ATTEND Internal Medicine
PROC: HZ2ZZZZ Detoxification Services for Substance Abuse Treatment (ICD-10-PCS; principal; 2021-01-19)
DX: A41.89 Other specified sepsis (principal); J18.9 Pneumonia, unspecified organism; N17.9 Acute kidney failure, unspecified; J44.1 Chronic obstructive pulmonary disease with (acute) exacerbation; M62.82 Rhabdomyolysis; F20.9 Schizophrenia, unspecified; F31.9 Bipolar disorder, unspecified; J96.01 Acute respiratory failure with hypoxia; R50.9 Fever, unspecified; F11.20 Opioid dependence, uncomplicated; F10.20 Alcohol dependence, uncomplicated; F17.200 Nicotine dependence, unspecified, uncomplicated; E83.42 Hypomagnesemia; D72.829 Elevated white blood cell count, unspecified; E83.39 Other disorders of phosphorus metabolism; R94.5 Abnormal results of liver function studies; F41.0 Panic disorder [episodic paroxysmal anxiety]; Z86.19 Personal history of other infectious and parasitic diseases
CPT/HCPCS: 36415; 71045-TC-FY; 71275-TC; 76775-TC; 80053; 80307; 81003; 82436; 82550; 82553; 82570; 82728; 83010; 83550; 83605; 83615; 83735; 83880; 84100; 84133; 84156; 84300; 84484; 85025; 85045; 85379; 85610; 85730; 86140; 86769; 86780; 87040; 87086; 87522; 87804; 87899; 93005; 93010; 99291; C9803; J0131; J1644; U0003; U0005

== ENCOUNTER 2023-06-17 11:56 | Inpatient (IN) | payer OTHER ==
[2023-06-17 12:40] VITALS: BMI 35.3
[2023-06-17] MEDS ORDERED: BENZOCAINE/MENTHOL (CHLORASEPTIC ) LOZENGE MM PRN (13:15)
[2023-06-17] MEDS ORDERED: MAG HYDROX/AL HYDROX/SIMETH 30 ML UNIT-DOSE CUP PO PRN (13:15)
[2023-06-17] MEDS ORDERED: ONDANSETRON *ODT* 4 MG TABLET SL PRN (13:15)
[2023-06-17] MEDS ORDERED: BENZONATATE 200 MG CAPSULE PO PRN (13:15)
[2023-06-17] MEDS ORDERED: hydrOXYzine PAMOATE 25 MG CAPSULE (FP) PO PRN (13:15)
[2023-06-17] MEDS ORDERED: guaiFENesin 600 MG TABLET.ER (FP) PO PRN (13:15)
[2023-06-17] MEDS ORDERED: NALOXONE HCL 0.4 MG/ML VIAL IM PRN (13:15)
[2023-06-17] MEDS ORDERED: IBUPROFEN 600 MG TABLET (FP) PO PRN (13:15)
[2023-06-17] MEDS ORDERED: LOPERAMIDE HCL 2 MG CAPSULE PO PRN (13:15)
[2023-06-17] MEDS ORDERED: NALOXONE HCL (KLOXXADO) 8 MG SPRAY NS PRN (13:15)
[2023-06-17] MEDS ORDERED: METHOCARBAMOL 500 MG TABLET PO PRN (13:15)
[2023-06-17] MEDS ORDERED: ACETAMINOPHEN 325 MG TABLET (FP) PO PRN (13:15)
[2023-06-17] MEDS ORDERED: IBUPROFEN 400 MG TABLET (FP) PO PRN (13:15)
[2023-06-17] MEDS ORDERED: BISMUTH SUBSALICYLATE 262 MG/15 ML BTL PO PRN (13:15)
[2023-06-17] MEDS ORDERED: MAGNESIUM HYDROX 2400MG/30ML ORAL SUSPENSION 30 ML CUP PO PRN (13:15)
[2023-06-17] MEDS ORDERED: POLYETHYLENE GLYCOL (HEALTHYLAX) 3350 17 GM PACKET PO PRN (13:15)
[2023-06-17] MEDS ORDERED: PATIENT'S OWN MEDICATION (NON-FORMULARY) (Valsartan/Hydrochlorothiazide [Valsartan-Hctz 80 PO SCH (15:30)
[2023-06-17] MEDS: HYDROCHLOROTHIAZIDE 12.5 MG CAPSULE (FP) PO SCH (15:50)
[2023-06-17] MEDS: VALSARTAN 80 MG TABLET PO SCH (15:57)
[2023-06-17] MEDS ORDERED: MELATONIN 5 MG TABLETS PO SCH (22:00)
[2023-06-17] MEDS: THIAMINE HCL 100 MG TABLET (FP) PO SCH (22:24)
[2023-06-18] MEDS ORDERED: chlordiazePOXIDE HCL 25 MG CAPSULE PO PRN (09:31)
[2023-06-18] MEDS: VALSARTAN 80 MG TABLET PO SCH (10:07)
[2023-06-18] MEDS: PRENATAL VITAMINS W/ FOLIC ACID TABLET (FP) PO SCH (10:07)
[2023-06-18] MEDS: HYDROCHLOROTHIAZIDE 12.5 MG CAPSULE (FP) PO SCH (10:07)
[2023-06-18] MEDS: NICOTINE 21 MG/24 HOURS TOPICAL PATCH TD SCH (10:48)
[2023-06-18] MEDS: NICOTINE 7 MG/24 HOURS TOPICAL PATCH TD SCH (10:49)
[2023-06-18] MEDS: chlordiazePOXIDE HCL 25 MG CAPSULE PO SCH ×3 (10:52→22:14)
[2023-06-18 12:37] LABS: HEMATOCRIT 51.8 % (35.4-49); HEMOGLOBIN 17.4 GM/dL (11.7-16.9); MCH 31.6 pg (25.7-33.7); MCHC 33.6 g/dl (32.0-35.9); MEAN CELL VOLUME 93.9 fl (80-96); MEAN PLT VOLUME 9.4 fl (7.5-11.1); PLATELET COUNT 164 10^3/uL (134-434); RBC 5.51 M/mm3 (4.00-5.60); RDW 13.5 % (11.9-15.9)
[2023-06-18 13:46] LABS: POTASSIUM 4.4 mmol/L (3.5-5.1)
[2023-06-18 13:48] LABS: BLOOD UREA NITROGEN 11.9 mg/dL (7-18); CALCIUM 9.2 mg/dL (8.5-10.1)
[2023-06-18 13:49] LABS: ALBUMIN 3.4 g/dl (3.4-5.0)
[2023-06-18 13:53] LABS: BILIRUBIN,TOTAL 0.5 mg/dL (0.2-1); TOT PROT 7.6 g/dl (6.4-8.2)
[2023-06-18 14:00] LABS: CREATININE 1.1 mg/dL (0.55-1.3)
[2023-06-18] MEDS ORDERED: MELATONIN 5 MG TABLETS PO SCH (22:00)
[2023-06-18] MEDS: THIAMINE HCL 100 MG TABLET (FP) PO SCH (22:14)
[2023-06-19] MEDS: chlordiazePOXIDE HCL 25 MG CAPSULE PO SCH ×2 (05:24→10:09)
[2023-06-19 06:16] VITALS: RESP 18
[2023-06-19 08:53] VITALS: BP 124/76; PULSE 68; TEMP 97.6
[2023-06-19] MEDS: PRENATAL VITAMINS W/ FOLIC ACID TABLET (FP) PO SCH (09:31)
[2023-06-19] MEDS: HYDROCHLOROTHIAZIDE 12.5 MG CAPSULE (FP) PO SCH (09:31)
[2023-06-19] MEDS: VALSARTAN 80 MG TABLET PO SCH (09:31)
[2023-06-19] MEDS: NICOTINE 7 MG/24 HOURS TOPICAL PATCH TD SCH (09:32)
[2023-06-19] MEDS: NICOTINE 21 MG/24 HOURS TOPICAL PATCH TD SCH (09:32)
[2023-06-20] MEDS ORDERED: chlordiazePOXIDE HCL 10 MG CAPSULE PO SCH (05:00)
[2023-06-21] MEDS ORDERED: chlordiazePOXIDE HCL 10 MG CAPSULE PO PRN
[2023-06-21] MEDS ORDERED: chlordiazePOXIDE HCL 10 MG CAPSULE PO SCH (05:00)
[2023-06-22] MEDS ORDERED: chlordiazePOXIDE HCL 10 MG CAPSULE PO ONE (05:00)
== END 2023-06-19 09:49 | disposition left against medical advice (07) | DRG 770 ==
LOC: YASAS 11:56 → Y3N 14:32
PROVIDERS: ADMIT Allergy & Immunology; ATTEND Surgery
PROC: HZ2ZZZZ Detoxification Services for Substance Abuse Treatment (ICD-10-PCS; principal; 2023-06-17)
DX: F10.230 Alcohol dependence with withdrawal, uncomplicated (principal); F14.20 Cocaine dependence, uncomplicated; F17.210 Nicotine dependence, cigarettes, uncomplicated; F25.9 Schizoaffective disorder, unspecified; F31.9 Bipolar disorder, unspecified; F19.282 Other psychoactive substance dependence with psychoactive substance-induced sleep disorder; I10 Essential (primary) hypertension; B18.2 Chronic viral hepatitis C; M17.0 Bilateral primary osteoarthritis of knee
CPT/HCPCS: 36415; 80053; 80307; 85027; 86780; 87635; 93005; 93010

== ENCOUNTER 2023-08-26 12:34 | Inpatient (IN) | payer OTHER ==
[2023-08-26 13:51] VITALS: BMI 34.4
[2023-08-26] MEDS ORDERED: BENZOCAINE/MENTHOL (CHLORASEPTIC ) LOZENGE MM PRN (15:27)
[2023-08-26] MEDS ORDERED: LOPERAMIDE HCL 2 MG CAPSULE PO PRN (15:27)
[2023-08-26] MEDS ORDERED: BISMUTH SUBSALICYLATE 524 MG/30 ML PO PRN (15:27)
[2023-08-26] MEDS ORDERED: POLYETHYLENE GLYCOL (HEALTHYLAX) 3350 17 GM PACKET PO PRN (15:27)
[2023-08-26] MEDS ORDERED: BENZONATATE 200 MG CAPSULE PO PRN (15:27)
[2023-08-26] MEDS ORDERED: ACETAMINOPHEN 325 MG TABLET (FP) PO PRN (15:27)
[2023-08-26] MEDS ORDERED: MAG HYDROX/AL HYDROX/SIMETH 30 ML UNIT-DOSE CUP PO PRN (15:27)
[2023-08-26] MEDS ORDERED: DICYCLOMINE HCL 10 MG CAPSULE PO PRN (15:27)
[2023-08-26] MEDS ORDERED: guaiFENesin 600 MG TABLET.ER (FP) PO PRN (15:27)
[2023-08-26] MEDS ORDERED: ONDANSETRON *ODT* 4 MG TABLET SL PRN (15:27)
[2023-08-26] MEDS ORDERED: IBUPROFEN 600 MG TABLET (FP) PO PRN (15:27)
[2023-08-26] MEDS ORDERED: NALOXONE HCL (KLOXXADO) 8 MG SPRAY NS PRN (15:27)
[2023-08-26] MEDS ORDERED: MAGNESIUM HYDROX 2400MG/30ML ORAL SUSPENSION 30 ML CUP PO PRN (15:27)
[2023-08-26] MEDS ORDERED: NALOXONE HCL 0.4 MG/ML VIAL IM PRN (15:27)
[2023-08-26] MEDS ORDERED: NICOTINE POLACRILEX 2 MG GUM BUC PRN (15:27)
[2023-08-26] MEDS ORDERED: IBUPROFEN 400 MG TABLET (FP) PO PRN (15:27)
[2023-08-26] MEDS ORDERED: chlordiazePOXIDE HCL 25 MG CAPSULE PO PRN (15:30)
[2023-08-26] MEDS: PRENATAL VITAMINS W/ FOLIC ACID TABLET (FP) PO SCH (18:03)
[2023-08-26] MEDS: NICOTINE 21 MG/24 HOURS TOPICAL PATCH TD SCH (18:03)
[2023-08-26] MEDS: chlordiazePOXIDE HCL 25 MG CAPSULE PO SCH (18:15)
[2023-08-26] MEDS: MELATONIN 5 MG TABLETS PO SCH (22:25)
[2023-08-26] MEDS: THIAMINE HCL 100 MG TABLET (FP) PO SCH (22:25)
[2023-08-27] MEDS: METHOCARBAMOL 500 MG TABLET PO PRN (10:11)
[2023-08-27 11:52] LABS: POTASSIUM 4.1 mmol/L (3.5-5.1)
[2023-08-27 11:58] LABS: MCH 31.5 pg (25.7-33.7); MCHC 34.7 g/dl (32.0-35.9); MEAN CELL VOLUME 90.9 fl (80-96); MEAN PLT VOLUME 8.5 fl (7.5-11.1); PLATELET COUNT 196 10^3/uL (134-434); RBC 5.72 M/mm3 (4.00-5.60); RDW 13.6 % (11.9-15.9)
[2023-08-27 12:00] LABS: ALBUMIN 3.2 g/dl (3.4-5.0); BLOOD UREA NITROGEN 11.4 mg/dL (7-18); CREATININE 1.2 mg/dL (0.55-1.3)
[2023-08-27 12:02] LABS: BILIRUBIN,TOTAL 0.8 mg/dL (0.2-1); CALCIUM 8.9 mg/dL (8.5-10.1); TOT PROT 7.2 g/dl (6.4-8.2)
[2023-08-27] MEDS ORDERED: LORazepam 1 MG TABLET PO PRN (12:11)
[2023-08-27] MEDS: LORazepam 2 MG TABLET PO SCH (17:38)
[2023-08-27] MEDS: MELATONIN 5 MG TABLETS PO SCH (22:11)
[2023-08-28] MEDS ORDERED: chlordiazePOXIDE HCL 25 MG CAPSULE PO SCH (05:00)
[2023-08-28] MEDS: LORazepam 1 MG TABLET PO SCH (05:48)
[2023-08-28 13:31] LABS: ALBUMIN 3.2 g/dl (3.4-5.0)
[2023-08-28 13:34] LABS: BILIRUBIN,DIRECT 0.2 mg/dL (0.0-0.2)
[2023-08-28 13:36] LABS: BASO % 0.5 % (0-2.0); BILIRUBIN,TOTAL 0.9 mg/dL (0.2-1); EOS % 7.2 % (0-4.5); HEMOGLOBIN 17.5 GM/dL (11.7-16.9); MEAN CELL VOLUME 91.4 fl (80-96); MEAN PLT VOLUME 8.4 fl (7.5-11.1); MONO % 10.6 % (3.8-10.2); NEUT % 64.7 % (42.8-82.8); PLATELET COUNT 192 10^3/uL (134-434); RBC 5.47 M/mm3 (4.00-5.60); RDW 13.6 % (11.9-15.9); TOT PROT 7.3 g/dl (6.4-8.2); WHITE BLOOD COUNT 7.3 K/mm3 (4.0-10.0)
[2023-08-28 21:08] VITALS: BP 154/97; PULSE 84; RESP 18; TEMP 98.2
[2023-08-29] MEDS ORDERED: LORazepam 0.5 MG TABLET PO PRN
[2023-08-29] MEDS ORDERED: chlordiazePOXIDE HCL 10 MG CAPSULE PO PRN
[2023-08-29] MEDS ORDERED: chlordiazePOXIDE HCL 10 MG CAPSULE PO SCH (05:00)
[2023-08-29] MEDS: LORazepam 0.5 MG TABLET PO SCH (05:30)
[2023-08-30] MEDS ORDERED: LORazepam 0.5 MG TABLET PO ONE (05:00)
[2023-08-30] MEDS ORDERED: chlordiazePOXIDE HCL 10 MG CAPSULE PO SCH (05:00)
[2023-08-31] MEDS ORDERED: chlordiazePOXIDE HCL 10 MG CAPSULE PO ONE (05:00)
== END 2023-08-29 05:20 | disposition left against medical advice (07) | DRG 770 ==
LOC: YASAS 12:34 → Y6N 15:48
PROVIDERS: ADMIT Allergy & Immunology; ATTEND Surgery
PROC: HZ2ZZZZ Detoxification Services for Substance Abuse Treatment (ICD-10-PCS; principal; 2023-08-26)
DX: F10.230 Alcohol dependence with withdrawal, uncomplicated (principal); F14.10 Cocaine abuse, uncomplicated; F25.9 Schizoaffective disorder, unspecified; F31.9 Bipolar disorder, unspecified; I10 Essential (primary) hypertension; B18.2 Chronic viral hepatitis C; R74.8 Abnormal levels of other serum enzymes; M17.0 Bilateral primary osteoarthritis of knee
CPT/HCPCS: 36415; 80053; 80076; 80305; 85025; 85027; 86780; 87635; 93005; 93010

== ENCOUNTER 2024-03-09 14:44 | Inpatient (IN) | payer OTHER ==
[2024-03-09 15:19] VITALS: PULSE 90; BMI 34.7
[2024-03-09] MEDS ORDERED: BENZONATATE 200 MG CAPSULE PO PRN (15:33)
[2024-03-09] MEDS ORDERED: LOPERAMIDE HCL 2 MG CAPSULE PO PRN (15:33)
[2024-03-09] MEDS ORDERED: POLYETHYLENE GLYCOL (HEALTHYLAX) 3350 17 GM PACKET PO PRN (15:33)
[2024-03-09] MEDS ORDERED: MAG HYDROX/AL HYDROX/SIMETH 30 ML UNIT-DOSE CUP PO PRN (15:33)
[2024-03-09] MEDS ORDERED: P-EPHED 60MG/TRIPROLIDI 2.5MG TABLET PO PRN (15:33)
[2024-03-09] MEDS ORDERED: ACETAMINOPHEN 325 MG TABLET (FP) PO PRN (15:33)
[2024-03-09] MEDS ORDERED: NICOTINE POLACRILEX 2 MG GUM BUC PRN (15:33)
[2024-03-09] MEDS ORDERED: ONDANSETRON *ODT* 4 MG TABLET SL PRN (15:33)
[2024-03-09] MEDS ORDERED: MAGNESIUM HYDROX 2400MG/30ML ORAL SUSPENSION 30 ML CUP PO PRN (15:33)
[2024-03-09] MEDS ORDERED: guaiFENesin 600 MG TABLET.ER (FP) PO PRN (15:33)
[2024-03-09] MEDS ORDERED: BISMUTH SUBSALICYLATE 262 MG/15 ML BTL PO PRN (15:33)
[2024-03-09] MEDS ORDERED: BENZOCAINE/MENTHOL (CHLORASEPTIC ) LOZENGE MM PRN (15:33)
[2024-03-09] MEDS ORDERED: METHOCARBAMOL 500 MG TABLET PO PRN (15:33)
[2024-03-09] MEDS ORDERED: DICYCLOMINE HCL 10 MG CAPSULE PO PRN (15:33)
[2024-03-09] MEDS ORDERED: NICOTINE POLACRILEX 2 MG LOZENGE BC PRN (15:33)
[2024-03-09] MEDS ORDERED: IBUPROFEN 400 MG TABLET (FP) PO PRN (15:33)
[2024-03-09] MEDS: MELATONIN 5 MG TABLETS PO SCH (22:12)
[2024-03-09] MEDS: levETIRAcetam 500 MG TABLET (FP) PO SCH (22:13)
[2024-03-09] MEDS: THIAMINE 100 MG TABLET PO SCH (22:13)
[2024-03-09] MEDS: hydrOXYzine PAMOATE 25 MG CAPSULE (FP) PO PRN (22:13)
[2024-03-10] MEDS: PRENATAL VITAMINS W/ FOLIC ACID TABLET (FP) PO SCH (09:50)
[2024-03-10] MEDS: HYDROCHLOROTHIAZIDE 12.5 MG CAPSULE (FP) PO SCH (09:50)
[2024-03-10] MEDS ORDERED: PATIENT'S OWN MEDICATION (NON-FORMULARY) (Valsartan/Hydrochlorothiazide [Valsartan-Hctz 80 PO SCH (10:00)
[2024-03-10] MEDS ORDERED: chlordiazePOXIDE HCL 25 MG CAPSULE PO PRN (11:41)
[2024-03-10 11:43] LABS: CHLORIDE 106 mmol/L (98-107); POTASSIUM 4.2 mmol/L (3.5-5.1); SODIUM 139 mmol/L (136-145)
[2024-03-10 11:44] LABS: HEMATOCRIT 50.2 % (35.4-49); HEMOGLOBIN 17.5 GM/dL (11.7-16.9); MCH 32.2 pg (25.7-33.7); MCHC 34.9 g/dl (32.0-35.9); MEAN CELL VOLUME 92.2 fl (80-96); MEAN PLT VOLUME 9.1 fl (7.5-11.1); PLATELET COUNT 177 10^3/uL (134-434); RBC 5.44 M/mm3 (4.00-5.60); RDW 13.6 % (11.9-15.9); WHITE BLOOD COUNT 7.5 K/mm3 (4.0-10.0)
[2024-03-10 11:53] LABS: CALCIUM 9.1 mg/dL (8.5-10.1)
[2024-03-10 11:54] LABS: ALBUMIN 3.1 g/dl (3.4-5.0); ANION GAP 9 mmol/L (4-13); BLOOD UREA NITROGEN 11.4 mg/dL (7-18); CO2 25 mmol/L (21-32); GLUCOSE,RANDOM 96 mg/dL (74-106)
[2024-03-10 11:57] LABS: CREATININE 0.9 mg/dL (0.55-1.3); SGOT/AST 168 U/L (15-37); SGPT/ALT 178 U/L (13-61)
[2024-03-10 11:58] LABS: BILIRUBIN,TOTAL 0.9 mg/dL (0.2-1)
[2024-03-10 11:59] LABS: ALK PHOS 66 U/L (45-117)
[2024-03-10] MEDS: chlordiazePOXIDE HCL 25 MG CAPSULE PO SCH (13:10)
[2024-03-10] MEDS: VALSARTAN 80 MG TABLET PO SCH (13:46)
[2024-03-11] MEDS: IBUPROFEN 600 MG TABLET (FP) PO PRN (17:10)
[2024-03-12] MEDS: chlordiazePOXIDE HCL 25 MG CAPSULE PO SCH (05:13)
[2024-03-12 09:15] VITALS: BP 140/94; RESP 17; TEMP 96.8
[2024-03-13] MEDS ORDERED: chlordiazePOXIDE HCL 10 MG CAPSULE PO PRN
[2024-03-13] MEDS ORDERED: chlordiazePOXIDE HCL 10 MG CAPSULE PO SCH (05:00)
[2024-03-14] MEDS ORDERED: chlordiazePOXIDE HCL 10 MG CAPSULE PO SCH (05:00)
[2024-03-15] MEDS ORDERED: chlordiazePOXIDE HCL 10 MG CAPSULE PO ONE (05:00)
== END 2024-03-12 07:26 | disposition left against medical advice (07) | DRG 770 ==
LOC: YASAS 14:44 → Y6N 17:50
PROVIDERS: ADMIT Allergy & Immunology; ATTEND Surgery
PROC: HZ2ZZZZ Detoxification Services for Substance Abuse Treatment (ICD-10-PCS; principal; 2024-03-09)
DX: F10.230 Alcohol dependence with withdrawal, uncomplicated (principal); F14.10 Cocaine abuse, uncomplicated; F17.210 Nicotine dependence, cigarettes, uncomplicated; F25.9 Schizoaffective disorder, unspecified; B18.2 Chronic viral hepatitis C; I10 Essential (primary) hypertension; M19.90 Unspecified osteoarthritis, unspecified site
CPT/HCPCS: 36415; 80053; 80305; 80307; 85027; 86780